=== PATIENT | female | born 1985 | race African-American/Black ===

== ENCOUNTER 2021-12-22 06:34 | Day surgery (SDC) | payer BC, SELFPAY ==
[2021-12-21 13:49] LABS: HCG,QUAL RESULT NEGATIVE (NEGATIVE)
[~2021-12-22] VITALS: Ht 175.3 cm; Wt 93.4 kg
[2021-12-22] MEDS ORDERED: ACETAMINOPHEN I.V. 1000 MG 100 ML IV ONE (07:36)
[2021-12-22] MEDS ORDERED: MIDAZOLAM HCL 2 MG/2 ML VIAL (VERSED) IVP PRN (09:15)
[2021-12-22] MEDS ORDERED: MEPERIDINE HCL/PF 25 MG/ML DISP.SYRIN IVP PRN (09:15)
[2021-12-22] MEDS ORDERED: HYDROmorphone 1 MG/ML INJ. CARTRIDGE IVP PRN (09:15)
[2021-12-22] MEDS ORDERED: LABETALOL 100 MG/ 20ML VIAL IVP PRN (09:15)
[2021-12-22] MEDS ORDERED: hydrALAZINE HCL 20 MG/ML VIAL IVP PRN (09:15)
[2021-12-22] MEDS ORDERED: METOCLOPRAMIDE HCL 10 MG/2 ML VIAL IVP PRN (09:15)
[2021-12-22] MEDS ORDERED: LR 1,000 ML IV SCH (09:15)
[2021-12-22] MEDS ORDERED: BACITRACIN 1 GM OINT TP ONE (10:20)
[2021-12-22] MEDS ORDERED: PROPOFOL 200MG/ 20ML VIAL (DIPRIVAN) IV ONE (10:20)
[2021-12-22] MEDS ORDERED: fentaNYL CITRATE/PF 100 MCG/2 ML AMP ONE (10:20)
[2021-12-22] MEDS ORDERED: DESFLURANE 15 MIN GAS INH ONE (10:20)
[2021-12-22] MEDS ORDERED: SUGAMMADEX SODIUM 200 MG/2 ML VIAL IV ONE (10:20)
[2021-12-22] MEDS ORDERED: ONDANSETRON HCL 4 MG/2 ML VIAL ONE (10:20)
[2021-12-22] MEDS ORDERED: DEXAMETHASONE SOD PHOSPHATE 4 MG/ML VIAL ONE (10:20)
[2021-12-22] MEDS ORDERED: LIDOCAINE/EPI 1% 1:100000 20 ML VIAL INJ ONE (10:20)
[2021-12-22] MEDS ORDERED: ROCURONIUM BROMIDE 10 MG/ML (ZEMURON) ONE (10:20)
[2021-12-22] MEDS ORDERED: NS 1000 ML IV.SOLN IV ONE (10:20)
[2021-12-22] MEDS ORDERED: OXYMETAZOLINE HCL 0.05% NASAL SPRAY NS ONE (10:20)
[2021-12-22] MEDS ORDERED: NS IRRIG SOLN 1000 ML IR ONE (10:20)
[2021-12-22] MEDS ORDERED: LR 1,000 ML IV.SOLN IV ONE (10:20)
[2021-12-22] MEDS ORDERED: MIDAZOLAM HCL 5 MG/ML VIAL (VERSED) IV ONE (10:20)
[2021-12-22] MEDS ORDERED: LIDOCAINE 2%, 20 ML MDV ONE (10:20)
[2021-12-22] MEDS ORDERED: LABETALOL 100 MG/ 20ML VIAL ONE (10:43)
[2021-12-22] MEDS ORDERED: hydrALAZINE HCL 20 MG/ML VIAL ONE (11:07)
[2021-12-22] MEDS: HYDROmorphone 1 MG/ML INJ. CARTRIDGE IVP PRN ×2 (11:21→11:35)
[2021-12-22] MEDS ORDERED: HYDROmorphone 1 MG/ML INJ. CARTRIDGE ONE (11:26)
[2021-12-22 12:17] VITALS: BP_SYST 130
== END 2021-12-22 16:00 | disposition home or self-care (01) ==
LOC: SDS 06:34 → SMU 06:35 → SDS 16:00
PROVIDERS: ATTEND Otolaryngology
DX: J34.2 Deviated nasal septum (principal); D38.5 Neoplasm of uncertain behavior of other respiratory organs; J30.1 Allergic rhinitis due to pollen; F33.9 Major depressive disorder, recurrent, unspecified; F90.8 Attention-deficit hyperactivity disorder, other type; D38.6 Neoplasm of uncertain behavior of respiratory organ, unspecified; Z79.899 Other long term (current) drug therapy
CPT/HCPCS: 30140; 30520; 36415; 84703; 87426; 88304; 88311; J0131; J0360; J1100; J1170; J2001; J2250; J2405; J2704; J3010; J3490 ×2; J7030; J7120; 88305